=== PATIENT | female | born 1945 | race Caucasian/White ===

== ENCOUNTER 2018-03-03 09:48 | Day surgery (SDC) | payer MEDICARE, OTHER ==
[~2018-03-03] VITALS: Ht 170.2 cm; Wt 60.5 kg
[2018-03-03] MEDS ORDERED: THYR60 (10:41)
== END 2018-03-03 12:45 | disposition home or self-care (01) ==
LOC: ORSCSDS 09:48
PROVIDERS: Internal Medicine Gastroenterology
PROC: 0DBL8ZX Excision of Transverse Colon, Via Natural or Artificial Opening Endoscopic, Diagnostic (ICD-10-PCS; principal; 2018-03-03 11:00)
DX: Z12.11 Encounter for screening for malignant neoplasm of colon (principal); D12.3 Benign neoplasm of transverse colon; K64.8 Other hemorrhoids; E03.9 Hypothyroidism, unspecified; Z79.899 Other long term (current) drug therapy
CPT/HCPCS: 88305; J7120

== ENCOUNTER → 2019-09-19 | Outpatient (CLI) | payer MEDICARE, OTHER ==
[~2019-09-19] MED LIST: THYR60
[2019-09-19 10:50] LABS: BASOPHILS ABSOLUTE AUTO 0.03 K/mm3 (0.00-0.23); BASOPHILS PERCENT AUTO 0 % (0-2); EOSINOPHILS ABSOLUTE AUTO 0.07 K/mm3 (0.00-0.68); EOSINOPHILS PERCENT AUTO 1 % (0-6); Hematocrit 44.1 % (33.0-51.0); Hemoglobin 14.5 g/dL (11.5-16.0); IMMATURE GRAN ABSOLUTE AUTO 0.02 K/mm3 (0.00-0.10); IMMATURE GRAN PERCENT AUTO 0 % (0-1); LYMPHOCYTES ABSOLUTE AUTO 0.77 K/mm3 (0.84-5.20); LYMPHOCYTES PERCENT AUTO 10 % (21-46); MONOCYTES ABSOLUTE AUTO 0.55 K/mm3 (0.16-1.47); MONOCYTES PERCENT AUTO 7 % (4-13); Mean Corpuscular HGB 31.1 pg (26.0-34.0); Mean Corpuscular HGB Conc 32.9 g/dL (31.5-36.5); Mean Corpuscular Volume 95 fL (80-100); NEUTROPHILS ABSOLUTE AUTO 6.02 K/mm3 (1.96-9.15); NEUTROPHILS PERCENT AUTO 81 % (41-73); RDW Coefficient Variation 13.2 % (11.7-14.2); RDW Standard Deviation 45.8 fL (35.1-46.3); Red Blood Cell Count 4.66 M/mm3 (3.80-5.20); White Blood Cell Count 7.46 K/mm3 (4.00-11.30)
[2019-09-19 10:52] LABS: Mean Platelet Volume 11.3 fL (9.1-12.4); Platelet Count 213 K/mm3 (150-400)
[2019-09-19 11:03] LABS: Alanine Aminotransfer (ALT/SGP 25 U/L (12-78); Albumin/Globulin Ratio 1.3 (0.8-1.8); Alk Phos 56 U/L (40-126); Anion Gap 9 mmol/L (6-16); Aspartate Aminotrans (AST/SGOT 29 U/L (12-37); Bilirubin, Total 0.5 mg/dL (0.1-1.0); Blood Urea Nitrogen 25 mg/dL (8-24); Bun/Creatinine Ratio 31.6 (12.0-20.0); CO2, Blood 28 mmol/L (21-32); Calcium, Blood 9.1 mg/dL (8.5-10.1); Chloride, Blood 103 mmol/L (98-108); Creatinine, Blood 0.79 mg/dL (0.40-1.00); Globulin, Blood 3.2 g/dL (2.2-4.0); Glomerular Filtration Rate >60 (60-); Glucose, Blood 105 mg/dL (70-99); Potassium, Blood 4.2 mmol/L (3.5-5.5); Sodium, Blood 140 mmol/L (136-145); Thyroid Stimulating Hormone 4.391 uIU/mL (0.360-4.800); Total Protein, Blood 7.2 g/dL (6.4-8.2)
[2019-09-19 11:04] LABS: Troponin I <0.017 ng/mL (0.000-0.040)
== END | disposition home or self-care (01) ==
LOC: LAB SHORT 10:39 → LAB EV 10:39
PROVIDERS: Physician Assistant Medical
DX: I25.10 Atherosclerotic heart disease of native coronary artery without angina pectoris (principal); R53.83 Other fatigue
CPT/HCPCS: 80053; 84443; 84484; 85025

== ENCOUNTER 2021-03-13 20:01 | Emergency (ER) | payer MEDICARE, OTHER ==
[~2021-03-13] VITALS: Ht 170.2 cm; Wt 59.0 kg
== END 2021-03-13 22:20 | disposition home or self-care (01) ==
LOC: ER 20:01
DX: T63.441A Toxic effect of venom of bees, accidental (unintentional), initial encounter (principal); Z88.1 Allergy status to other antibiotic agents
CPT/HCPCS: 99283; A9270; J2930; J7512

== ENCOUNTER 2022-12-23 11:15 | Day surgery (SDC) | payer MEDICARE, OTHER ==
[~2022-12-23] VITALS: Ht 170.2 cm; Wt 56.6 kg
[2022-12-23] MEDS ORDERED: IBUP800 PO (11:34)
--- NOTE | 2022-12-23 11:47 | NUR ---
12/23/22 [address] AT 1134, PLEDGET PLACED AT 1135. PT TOLERATED WELL.
[2022-12-23 13:08] VITALS: BP 132/60
--- NOTE | 2022-12-23 13:22 | NUR ---
12/23/22 1322 TANNER BRAR-STUDENT NURSE ASSISTING WITH CARE.
== END 2022-12-23 13:34 | disposition home or self-care (01) ==
LOC: ORSCSDS 11:15
PROVIDERS: Ophthalmology
PROC: 08DJ3ZZ Extraction of Right Lens, Percutaneous Approach (ICD-10-PCS; principal; 2022-12-23 12:30)
DX: H25.13 Age-related nuclear cataract, bilateral (principal)
CPT/HCPCS: J2001; J2250; J3010; J3301; J7040; V2632

== ENCOUNTER 2022-12-30 11:15 | Day surgery (SDC) | payer MEDICARE, OTHER ==
[~2022-12-30] VITALS: Ht 170.2 cm; Wt 57.4 kg
[~2022-12-30 11:15] MED LIST changes: +IBUP800 PO
--- NOTE | 2022-12-30 11:36 | NUR ---
12/30/22 1136 Joy Gibson TETRACAINE TO LEFT EYE AT 1129 PLEDGET TO LEFT EYE AT 1132 BY [facility].JOCELYNT
[2022-12-30 12:45] VITALS: BP 132/66
--- NOTE | 2022-12-30 13:46 | NUR ---
12/30/22 1346 Juan Rincon IV REMOVED. SITE WNL.
== END 2022-12-30 13:02 | disposition home or self-care (01) ==
LOC: ORSCSDS 11:15
PROVIDERS: Ophthalmology
PROC: 08DK3ZZ Extraction of Left Lens, Percutaneous Approach (ICD-10-PCS; principal; 2022-12-30 12:30)
DX: H25.12 Age-related nuclear cataract, left eye (principal); Z96.1 Presence of intraocular lens
CPT/HCPCS: J2001; J2250; J3010; J3301; J7040; V2632